=== PATIENT | female | born 2000 | race Caucasian/White ===

== ENCOUNTER 2018-07-10 19:31 | Emergency (ER) | payer OTHER ==
[~2018-07-10] VITALS: Ht 160 cm; Wt 90.7 kg
[2018-07-10] MEDS ORDERED: VISTARIL 25 MG25 M1 PO (19:40)
[2018-07-10 20:33] LABS: URINE BILIRUBIN NEGATIVE (Negative); URINE BLOOD NEGATIVE (Negative); URINE CLARITY SL CLOUDY; URINE COLOR YELLOW; URINE GLUCOSE-RANDOM* NEGATIVE (Negative); URINE KETONES NEGATIVE (Negative); URINE LEUKOCYTES-REFLEX NEGATIVE (Negative); URINE NITRITE-REFLEX NEGATIVE (Negative); URINE PROTEIN (DIPSTICK) NEGATIVE (Negative); URINE UROBILINOGEN 0.2 E.U./dl (0.2-1.0)
== END 2018-07-10 20:25 | disposition short-term general hospital (02) ==
LOC: ER 19:31
PROVIDERS: Nurse Practitioner Family
DX: O60.03 Preterm labor without delivery, third trimester (principal); R10.9 Unspecified abdominal pain; Z3A.41 41 weeks gestation of pregnancy

== ENCOUNTER 2021-10-20 19:07 | Emergency (ER) | payer OTHER ==
[~2021-10-20] VITALS: Ht 160 cm; Wt 63.5 kg
[~2021-10-20 19:07] MED LIST: CLONAZEPAM0.5 MG PO; FLUOXETINE HCL20 M1 PO; ONDANSETRON HCL4 M2 PO; VISTARIL 25 MG25 M1 PO
[2021-10-20 19:40] VITALS: BP 128/70
[2021-10-20] MEDS ORDERED: AMOXICILLIN875 MG PO (20:36)
== END 2021-10-20 20:52 | disposition home or self-care (01) ==
LOC: ER 19:07
DX: K08.89 Other specified disorders of teeth and supporting structures (principal); H57.13 Ocular pain, bilateral